=== PATIENT | female | born 1995 | race African-American/Black ===

== ENCOUNTER 2018-03-24 12:01 | Inpatient (IN) | payer OTHER ==
[2018-03-24] MEDS ORDERED: OXYTOCIN 10 UNIT/ML 1 ML VIAL IM PRN (13:22)
[2018-03-24] MEDS ORDERED: CARBOPROST TROMETHAMINE 250 MCG/ML 1 ML AMP IM PRN (13:22)
[2018-03-24] MEDS ORDERED: TERBUTALINE 1 MG/ML VIAL SQ PRN (13:22)
[2018-03-24] MEDS ORDERED: LIDOCAINE 1% (PF) 10 MG/ML (30 ML SDV) SQ PRN (13:22)
[2018-03-24] MEDS ORDERED: METHYLERGONOVINE 0.2 MG/ML 1 ML AMP IM PRN (13:22)
[2018-03-24 13:32] VITALS: BMI 35.2
[2018-03-24] MEDS: OXYTOCIN 20 UNITS/1000 ML NS 1,000 ML IV SCH ×2 (13:56→23:20)
[2018-03-24 13:57] LABS: Anisocytosis Slight; Basophils % (A) 0 %; Eosinophils # (A) 0.2 k/uL (0-0.7); Eosinophils % (A) 3 %; HCT 33.4 % (34.0-46.0); HGB 10.8 gm/dL (11.4-16.0); Lymphocytes # (A) 1.5 k/uL (1.0-4.8); Lymphocytes % (A) 17 %; MCH 27.4 pg (25.0-35.0); MCHC 32.3 g/dL (31.0-37.0); MCV 84.7 fL (80.0-100.0); Mean Platelet Volume 9.4; Monocytes # (A) 0.4 k/uL (0-1.0); Monocytes % (A) 5 %; Neutrophils # (A) 6.5 k/uL (1.3-7.7); Neutrophils % (A) 73 %; Platelet Count 128 k/uL (150-450); RBC 3.94 m/uL (3.80-5.40); RDW 17.3 % (11.5-15.5); WBC 8.9 k/uL (3.8-10.6)
[2018-03-24] MEDS: LACTATED RINGERS 1,000 ML IV SCH ×3 (13:57→21:28)
[2018-03-24] MEDS: LABETALOL 5 MG/ML VIAL MDV IVP SCH ×7 (14:37→20:54)
[2018-03-24] MEDS ORDERED: AMPICILLIN 2,000 MG in SODIUM CHLORIDE 0.9% 100 ML IVPB STA (15:02)
[2018-03-24] MEDS ORDERED: SODIUM CHLORIDE 0.9% 100 ML BAG ONE (18:48)
[2018-03-24] MEDS ORDERED: fentaNYL (PF) 50 MCG/ML 5 ML AMP ONE (18:48)
[2018-03-24] MEDS ORDERED: BUPIVACAINE (PF) 0.25% 30 ML VIAL ONE (18:48)
--- NOTE | 2018-03-24 19:48 | P.HPOB ---
History of Present Illness H&P Date: 03/24/18 Chief Complaint: IUP term: gestational hypertension Patient is a 22-year-old female at 37 weeks gestation who was seen in my office yesterday for her normal obstetrical visit. At that time she was noted have mild elevation of blood pressure in the 140/90 range and was supposed to go to labor and delivery for for full evaluation. However, she went to the lab had her labwork done but despite several phone calls from os did not responded did not come back in for her blood pressure checks and reevaluation. At that time all of her labs were normal. We did get a hold for earlier today and send her to labor and delivery where her blood pressures have remained elevated in fact she's had several blood pressures in the 170/100 range and has required labetalol for blood pressure management, with her labs yesterday all being normal we did not repeat her preeclamptic labs, however at this time it is noted that her platelets have dropped 129 and now is significant higher concern for potential preeclampsia that is developing. On physical exam her vital signs again or otherwise stable but but her blood pressure was elevated, heart regular, lungs clear, extremities without pain. It is noted that initially she voices no signs or symptoms of preeclampsia no headache, epigastric pain or visual changes. However in discussing with her this evening as she is gone through the labor process she is begun to have a significant headache and while she is not receive anything we'll plan to give her something to the IV but with her platelet count at 129 being a dramatic change from yesterday's well over 200 we'll plan to start magnesium sulfate and repeat her other preeclamptic labs. Past Medical History Past Medical History: No Reported History History of Any Multi-Drug Resistant Organisms: None Reported Past Surgical History: No Surgical Hx Reported Past Anesthesia/Blood Transfusion Reactions: No Reported Reaction Past Psychological History: No Psychological Hx Reported Smoking Status: Former smoker Past Alcohol Use History: None Reported Past Drug Use History: None Reported - Past Family History Mother Family Medical History: No Reported History Medications and Allergies Home Medications Medication Instructions Recorded Confirmed Type No Known Home Medications [No 03/24/18 03/24/18 History Known Home Medications] Allergies Allergy/AdvReac Type Severity Reaction Status Date / Time No Known Allergies Allergy Verified 03/24/18 12:16 Exam Osteopathic Statement: *. No significant issues noted on an osteopathic structural exam other than those noted in the History and Physical/Consult. - Vital Signs Vital signs: Vital Signs Temp Pulse Resp BP 03/24/18 13:23 97.5 F L 16 153/104 03/24/18 12:30 97.3 F L 83 16 142/91 Intake and Output 03/24/18 03/24/18 03/24/18 06:59 14:59 22:59 Other: # Voids 1 Weight 102.058 kg - OBG Physical Exam Breast: both: normal (no masses) Abdomen: bowel sounds normal, no diffuse tenderness, no bruit present, no guarding noted, no hepatomegaly, no splenomegaly, no mass Vulva: both: normal Vagina: normal moisture, no discharge Cervix: no lesion, no discharge Uterus: normal size, normal contour Adnexa: both: normal Anus/Rectum: normal perianal skin, no rectal mass, no hemorrhoids, heme negative Results Result Diagrams: 03/24/18 13:45 Abnormal Lab Results - Last 24 Hours (Table) 03/24/18 Range/Units 13:45 Hgb 10.8 L (11.4-16.0) gm/dL Hct 33.4 L (34.0-46.0) % RDW 17.3 H (11.5-15.5) % Plt Count 128 L (150-450) k/uL
[2018-03-24] MEDS ORDERED: MAGNESIUM SULFATE-WATER PMX 4 GM in WATER FOR INJECTION 1 50ML.BAG IVPB ONE (19:49)
[2018-03-24] MEDS: AMPICILLIN 1,000 MG in SODIUM CHLORIDE 0.9% 50 ML IVPB SCH (19:51)
[2018-03-24] MEDS: MAGNESIUM SULFATE-WATER PMX 20 GM in WATER FOR INJECTION 1 500ML.BAG IV SCH (20:10)
[2018-03-24] MEDS ORDERED: BUPIVACAINE (PF) 0.5% 12.5 ML, fentaNYL (PF) 200 MCG in SODIUM CHLORIDE 0.9% 83.5 ML EPIDURAL ONE (20:10)
[2018-03-24 20:21] LABS: ALT 26 U/L (9-52); AST 21 U/L (14-36); LDH 410 U/L (313-618)
[2018-03-24] MEDS ORDERED: ROPIVACAINE 100 MG, fentaNYL (PF) 200 MCG in SODIUM CHLORIDE 0.9% 76 ML EPIDURAL ONE (20:30)
[2018-03-24 22:35] LABS: Blood Urea Nitrogen 4 mg/dL (7-17); Magnesium 1.6 mg/dL (1.6-2.3); Uric Acid 5.4 mg/dL (3.7-7.4)
[2018-03-24] MEDS ORDERED: diphenhydrAMINE 50 MG/ML 1 ML VIAL IVP PRN ×2 (23:12)
[2018-03-24] MEDS ORDERED: MEASLES-MUMPS-RUBELLA VACC/PF 12,500 UNIT/0.5 ML VIAL SQ ONE (23:12)
[2018-03-24] MEDS ORDERED: WITCH HAZEL 1 EACH MED..PAD TOPICAL PRN (23:12)
[2018-03-24] MEDS ORDERED: ZOLPIDEM 5 MG TAB PO PRN (23:12)
[2018-03-24] MEDS ORDERED: HYDROcodone/APAP 5-325MG 1 EACH TAB PO PRN (23:12)
[2018-03-24] MEDS ORDERED: SIMETHICONE 80 MG CHEWABLE PO PRN (23:12)
[2018-03-24] MEDS ORDERED: diphenhydrAMINE 50 MG CAP PO PRN (23:12)
[2018-03-24] MEDS ORDERED: HYDROCORTISONE 2.5% RECTAL CREAM 30 GM TUBE RECTAL PRN (23:12)
[2018-03-24] MEDS ORDERED: BENZOCAINE/MENTHOL SPRAY 1 GM/SPRAY AEROSOL TOPICAL PRN (23:12)
[2018-03-24] MEDS ORDERED: diphenhydrAMINE 25 MG CAP PO PRN (23:12)
[2018-03-24] MEDS ORDERED: LANOLIN CREAM 5 GM TUBE TOPICAL PRN (23:12)
--- NOTE | 2018-03-24 23:17 | P.PROBDLV ---
Vaginal Delivery Note - . Vaginal Delivery Note: Patient progressed complete and pushing with spontaneous vaginal delivery of a viable male over an small second-degree laceration. Following delivery of the head head there was a compound hand noted. Baby was delivered from left occiput anterior position allowing the baby to try and deliver the superior hand was not happening well and due to concerns over baby's position of the arm in the vagina I did reach posteriorly and take the axilla of the inferior arm and rotate the baby in a counterclockwise fashion to allow the presenting hand to actually drop away from the face and easily affected delivery from this position. Once baby was fully delivered mouth nares were bulb suctioned and baby was placed on mother's abdomen where the umbilical cord was allowed to pulsate for 20 seconds prior to clamping and cutting. Once this occurred nursery personnel was present to assume care. Placenta was then delivered intact Pitocin was added to the IV. A second-degree midline laceration was repaired in interrupted fashion to reapproximate but essentially was just as a whole. There was also a separation between the labia majora side of the vagina and this following injection of anesthetic was repaired with 2 interrupted sutures to bring the tissues together so they've whole was not developed there. scores were 9 and 9 at one and 5 minutes respectively and the weight was 6 lbs. 14 oz. Both mother and baby are currently stable following delivery. We'll plan to maintain mag sulfate through the night and reevaluate in the morning. Blood pressures have been improved since her epidural and we' ll continue very close monitoring of this through the night and into tomorrow.
[2018-03-24] MEDS: IBUPROFEN 600 MG TAB PO PRN (23:48)
[2018-03-25] MEDS: AMPICILLIN 1,000 MG in SODIUM CHLORIDE 0.9% 50 ML IVPB SCH (00:57)
[2018-03-25] MEDS: ACETAMINOPHEN TAB 325 MG TAB PO PRN ×2 (01:51→20:04)
[2018-03-25] MEDS: ACETAMINOPHEN IV (For NPO) 1,000 MG in EMPTY BAG 1 BAG IVPB SCH ×3 (02:04→20:46)
[2018-03-25] MEDS: LACTATED RINGERS 1,000 ML IV SCH (06:34)
[2018-03-25 08:11] LABS: Anisocytosis Slight; Basophils % (A) 0 %; Eosinophils # (A) 0.1 k/uL (0-0.7); Eosinophils % (A) 1 %; HCT 30.3 % (34.0-46.0); HGB 9.7 gm/dL (11.4-16.0); Lymphocytes # (A) 1.6 k/uL (1.0-4.8); Lymphocytes % (A) 12 %; MCH 27.1 pg (25.0-35.0); MCHC 31.9 g/dL (31.0-37.0); MCV 84.8 fL (80.0-100.0); Monocytes # (A) 0.8 k/uL (0-1.0); Monocytes % (A) 6 %; Neutrophils # (A) 10.9 k/uL (1.3-7.7); Neutrophils % (A) 80 %; Platelet Count 207 k/uL (150-450); RBC 3.57 m/uL (3.80-5.40); RDW 17.4 % (11.5-15.5); WBC 13.5 k/uL (3.8-10.6)
[2018-03-25] MEDS: SENNOSIDES-DOCUSATE SODIUM 1 EACH TAB PO SCH ×2 (08:30→20:04)
[2018-03-25 08:31] LABS: INR 0.9 (<1.2); Partial Thromboplastin Time 21.2 sec (22.0-30.0); Prothrombin Time 9.4 sec (9.0-12.0)
--- NOTE | 2018-03-25 08:44 | P.MSEPDOC ---
Presenting Problems - Arrival Data Date of Arrival on Unit: 03/24/18 Time of Arrival on Unit: 13:00 Mode of Transport: Ambulatory - Complaint OB-Reason for Admission/Chief Complaint: Elevated Blood Pressure Medical History - Information : 1 Para: 0 Term: 0 : 0 Abortions: Spontaneous or Elective: 0 Number of Living Children: 0 - Gestational Age Gestational Age by PAT (wks/days): 37 Weeks and 2 Days Review of Systems - Review of Systems Constitutional: No problems Breast: No problems ENT: No problems Cardiovascular: No problems Respiratory: No problems Gastrointestinal: No problems Genitourinary: No problems Musculoskeletal: No problems Neurological: No problems Skin: No problems Vital Signs - Temperature Temperature: 98.2 F Temperature Source: Temporal Artery Scan - Pulse Right Brachial Pulse Rate: 85 Pulse Assessment Method: Automatic Cuff - Respirations Respiratory Rate: 18 Oxygen Delivery Method: Room Air O2 Sat by Pulse Oximetry: 99 - Blood Pressure Right Arm Blood Pressure: 141/81 Blood Pressure Mean: 101 Blood Pressure Source: Automatic Cuff Medical Screen Scoring (Pre) - Cervical Exam Dilation: Exam Deferred Effacement: Exam Deferred Membranes: Intact - Uterine Contractions Frequency: N/A Duration: N/A Intensity: N/A - Maternal Vital Signs Maternal Temperature: N/A Maternal Blood Pressure: Systolic >139 = 2 Signs of Preeclampsia: N/A Maternal Respirations: N/A - Pain Assessment Pain Scale Used: Numeric (1 - 10) Pain Intensity: 0 Pain Management Goal: 0 - Maternal Trauma Maternal Trauma: N/A - Assessment Baseline FHR: 145 Heart Rate - NICHD Category: Category I (Normal) = 0 NST: Reactive Position: N/A Station: N/A - Total Score Total Score (Pre): 2 - Level of Risk Level of Risk: Low (0-5) Physician Notification (Pre) - Physician Notified Physician Notified Date: 03/24/18 Physician Notified Time: 12:30 Physician/Practitioner Notifed:: Dr. Blank Spoke With: Dr. Blank New Order Received: Yes - Notification Comment Comment: admit for labor Disposition - Disposition OB Disposition: Admit I agree with the RN Medical Screening Exam: Yes Risk & Benefit of care provided described in d/c instruction: Yes Diagnosis: GESTATIONAL HTN W/O SIGNIFICANT PROTEINURIA, THIRD TRIMESTER
--- NOTE | 2018-03-25 08:54 | P.PNOBGVD ---
Subjective - Subjective Principal diagnosis: post day 1 Interval history: Overall patient is doing well. Blood pressures remained mildly elevated. Currently in the 140-150/80-90 range. She is completely asymptomatic otherwise. Her platelets did rebound and are now back over 200. Continue care Patient reports: Reports appetite normal, Reports voiding normally, Reports pain well controlled, Reports ambulating normally Max: doing well Objective - Latest Vital Signs Latest vital signs: Vital Signs Temp Pulse Resp BP Pulse Ox 03/25/18 08:44 98.2 F 85 18 141/81 99 03/25/18 04:00 98.2 F 85 18 141/81 99 03/25/18 01:33 98.2 F 87 16 147/87 03/25/18 01:03 99 16 146/102 99 03/25/18 00:33 83 16 142/95 03/25/18 00:18 77 16 136/94 03/25/18 00:03 80 16 146/92 03/24/18 23:48 83 16 155/97 03/24/18 23:33 81 16 148/96 03/24/18 13:23 97.5 F L 16 153/104 03/24/18 12:30 97.3 F L 83 16 142/91 Intake and Output 03/24/18 03/25/18 03/25/18 22:59 06:59 14:59 Intake Total 3250 3187.867 Output Total 2600 Balance 3250 587.867 Intake: IV 3000 Lactated Ringers 1,000 ml 2000 @ 125 mls/hr IV .Q8H [facility] Rx#:[id number] Oxytocin 20 Units/1000 ml 1000 Ns 1,000 ml @ 1 MILLIUNIT/MIN 3 mls/hr IV .Q24H [facility] Rx#:[id number] Intake, IV Titration 250 1269.867 Amount Ampicillin 1,000 mg In 100 Sodium Chloride 0.9% 50 ml @ 100 mls/hr IVPB Q4H [facility] Rx#:[id number] Ampicillin 2,000 mg In 100 Sodium Chloride 0.9% 100 ml @ 200 mls/hr IVPB ONCE STA Rx#:[id number] Lactated Ringers 1,000 ml 1000 @ 125 mls/hr IV .Q8H [facility] Rx#:[id number] Magnesium Sulfate-Water 241.667 Pmx 20 gm In Water For Injection 1 500ml.bag @ 2 GM/HR 50 mls/hr IV .Q10H [facility] Rx#:[id number] Magnesium Sulfate-Water 50 Pmx 4 gm In Water For Injection 1 50ml.bag @ 150 mls/hr IVPB ONCE ONE Rx#:[id number] Oxytocin 20 Units/1000 ml 28.2 Ns 1,000 ml @ 1 MILLIUNIT/MIN 3 mls/hr IV .Q24H [facility] Rx#:[id number] Oral 1918 Output: Urine 2600 Uretheral (Lantigua) 400 Other: # Bowel Movements 1 - Exam Lungs: bilateral: normal Chest: Normal S1, Normal S2 Extremities: Present: normal Abdomen: Present: normal appearance, soft Uterus: Present: normal, firm - Labs Labs: Abnormal Lab Results - Last 24 Hours (Table) 03/24/18 03/24/18 03/24/18 Range/Units 13:45 20:01 20:01 WBC (3.8-10.6) k/uL RBC (3.80-5.40) m/uL Hgb 10.8 L (11.4-16.0) gm/dL Hct 33.4 L (34.0-46.0) % RDW 17.3 H (11.5-15.5) % Plt Count 128 L (150-450) k/uL Neutrophils # (1.3-7.7) k/uL APTT (22.0-30.0) sec BUN 4 L (7-17) mg/dL Creatinine 0.51 L 0.50 L (0.52-1.04) mg/dL 03/25/18 03/25/18 Range/Units 07:20 07:20 WBC 13.5 H (3.8-10.6) k/uL RBC 3.57 L (3.80-5.40) m/uL Hgb 9.7 L (11.4-16.0) gm/dL Hct 30.3 L (34.0-46.0) % RDW 17.4 H (11.5-15.5) % Plt Count (150-450) k/uL Neutrophils # 10.9 H (1.3-7.7) k/uL APTT 21.2 L (22.0-30.0) sec BUN (7-17) mg/dL Creatinine (0.52-1.04) mg/dL
[2018-03-25] MEDS: MAGNESIUM SULFATE-WATER PMX 20 GM in WATER FOR INJECTION 1 500ML.BAG IV SCH ×2 (10:37→20:49)
[2018-03-25] MEDS: IBUPROFEN 600 MG TAB PO PRN ×2 (10:39→16:32)
[2018-03-25 19:24] VITALS: RESP 16
[2018-03-26] MEDS: IBUPROFEN 600 MG TAB PO PRN (02:35)
--- NOTE | 2018-03-26 06:22 | P.DS ---
Providers Date of admission: 03/24/18 12:29 Expected date of discharge: 03/26/18 Attending physician: Grzegorz Blank Primary care physician: Stated None Hospital Course: Patient is doing very well day 2. She is involuting, voiding, and she is tolerating her diet. She voices no complaints and is ready for discharge. Prescription for Motrin was provided. All the questions are answered for her at this time. Heart regular, lungs clear, extremities without pain. Abdomen is soft uterus is firm below the umbilicus. It is noted that her blood pressure maintain some small elevations in the 140/90-150/90 range. She is scheduled to return to see me on Tuesday for repeat blood pressure check. At this time I do not see the need for antihypertensive medication but that may change. Should she have any severe headaches epigastric pain visual changes other signs or symptoms of increasing blood pressure were preeclampsia she is also encouraged to report immediately to the emergency room. She is otherwise stable for discharge this time. Patient Condition at Discharge: Good Plan - Discharge Summary Discharge Rx Participant: Yes New Discharge Prescriptions: New Ibuprofen [Motrin] 600 mg PO Q6HR PRN #30 tab PRN Reason: Pain Discharge Medication List Ibuprofen [Motrin] 600 mg PO Q6HR PRN #30 tab 03/26/18 [Rx] Follow up Appointment(s)/Referral(s): Grzegorz Blank DO [Doctor of Osteopathic Medicine] - 3 Days Activity/Diet/Wound Care/Special Instructions: No heavy lifting, limit stairs and driving, and pelvic rest. If any high temperatures, heavy bleeding, or severe pain call my office Discharge Disposition: HOME SELF-CARE
[2018-03-26] MEDS: SENNOSIDES-DOCUSATE SODIUM 1 EACH TAB PO SCH (08:05)
[2018-03-26 08:13] VITALS: BP 147/90; PULSE 82; TEMP 98.2
[2018-03-27 12:52] LABS: HIV AB P24 Non-Reactive (Non-Reactive); HIV P24 AG Non-Reactive (Non-Reactive)
== END 2018-03-26 11:35 | disposition home or self-care (01) | DRG 775 ==
LOC: FBPOP 12:01 → 4FBP 12:29
PROVIDERS: ADMIT Obstetrics & Gynecology; ATTEND Obstetrics & Gynecology
PROC: 00HU33Z Insertion of Infusion Device into Spinal Canal, Percutaneous Approach (ICD-10-PCS; principal; 2018-03-24)
PROC: 0KQM0ZZ Repair Perineum Muscle, Open Approach (ICD-10-PCS; principal; 2018-03-24)
PROC: 3E033VJ Introduction of Other Hormone into Peripheral Vein, Percutaneous Approach (ICD-10-PCS; principal; 2018-03-24)
PROC: 10E0XZZ Delivery of Products of Conception, External Approach (ICD-10-PCS; principal; 2018-03-24)
PROC: 3E0R3NZ Introduction of Analgesics, Hypnotics, Sedatives into Spinal Canal, Percutaneous Approach (ICD-10-PCS; principal; 2018-03-24)
PROC: 10907ZC Drainage of Amniotic Fluid, Therapeutic from Products of Conception, Via Natural or Artificial Opening (ICD-10-PCS; principal; 2018-03-24)
DX: O13.4 Gestational [pregnancy-induced] hypertension without significant proteinuria, complicating childbirth (principal); Z37.0 Single live birth; O70.1 Second degree perineal laceration during delivery; Z3A.37 37 weeks gestation of pregnancy; Z87.891 Personal history of nicotine dependence; O32.2XX0 Maternal care for transverse and oblique lie, not applicable or unspecified
CPT/HCPCS: 59025; 82565; 83615; 83735; 84450; 84460; 84520; 84550; 85025; 85384; 85610; 85730; 86803; 87390; 99213

== ENCOUNTER 2019-09-06 01:50 | Emergency (ER) | payer OTHER ==
[2019-09-06 01:59] VITALS: RESP 18
[2019-09-06 02:43] LABS: Appearance,Urine Clear (Clear); Bilirubin,Urine Negative (Negative); Blood,Urine Negative (Negative); Color,Urine Yellow; Glucose,Urine (UA) Negative (Negative); Ketones,Urine Negative (Negative); Leukocyte Esterase,Urine Moderate (Negative); Mucus,Urine Rare /hpf; Nitrite,Urine Negative (Negative); Protein,Urine Negative (Negative); RBC,Urine 1 /hpf (0-5); Specific Gravity,Urine 1.017 (1.001-1.035); Squamous Epithelial Cell,Urine 2 /hpf (0-4); Urobilinogen,Urine <2.0 mg/dL (<2.0); WBC,Urine 2 /hpf (0-5)
[2019-09-06] MEDS ORDERED: PENICILLIN V POTASSIUM 250 MG TAB PO STA (02:54)
[2019-09-06] MEDS ORDERED: PENICILLIN VK 500MG STARTER 4 TAB BTL PO STA (02:54)
--- NOTE | 2019-09-06 03:17 | XR ---
EXAMINATION TYPE: XR KUB DATE OF EXAM: 09/06/2019 COMPARISON: NONE HISTORY: Abdominal pain TECHNIQUE: 2 views upright FINDINGS: There is no sign of intestinal obstruction or pneumoperitoneum. Fecal pattern is normal. Th ere are no pathologic calcifications. Bony structures are intact. IMPRESSION: Nonacute abdomen.
[2019-09-06 03:20] LABS: Basophils % (A) 1 %; Eosinophils # (A) 0.3 k/uL (0-0.7); Eosinophils % (A) 4 %; HCT 39.3 % (34.0-46.0); HGB 13.4 gm/dL (11.4-16.0); Lymphocytes # (A) 2.2 k/uL (1.0-4.8); Lymphocytes % (A) 29 %; MCH 29.5 pg (25.0-35.0); MCHC 34.1 g/dL (31.0-37.0); MCV 86.3 fL (80.0-100.0); Mean Platelet Volume 5.9; Monocytes # (A) 0.4 k/uL (0-1.0); Monocytes % (A) 5 %; Neutrophils # (A) 4.6 k/uL (1.3-7.7); Neutrophils % (A) 60 %; Platelet Count 255 k/uL (150-450); RBC 4.56 m/uL (3.80-5.40); RDW 13.7 % (11.5-15.5); WBC 7.6 k/uL (3.8-10.6)
[2019-09-06 03:38] LABS: ALT 35 U/L (9-52); AST 41 U/L (14-36); African American GFR (CKD) >90 (>60 ml/min/1.73 sqM); Albumin 4.5 g/dL (3.5-5.0); Alkaline Phosphatase 52 U/L (38-126); Anion Gap 7 mmol/L; Blood Urea Nitrogen 9 mg/dL (7-17); Calcium 9.4 mg/dL (8.4-10.2); Carbon Dioxide 25 mmol/L (22-30); Chloride 105 mmol/L (98-107); Glucose 90 mg/dL (74-99); Potassium 4.1 mmol/L (3.5-5.1); Sodium 137 mmol/L (137-145); Total Bilirubin 0.3 mg/dL (0.2-1.3); Total Protein 7.7 g/dL (6.3-8.2)
--- NOTE | 2019-09-06 03:49 | ED ---
General Adult HPI - General Chief complaint: Extremity Problem,Nontraumatic Stated complaint: Bilateral arm pain, dental pain Time Seen by Provider: 09/06/19 02:06 Source: patient, RN notes reviewed, old records reviewed Mode of arrival: ambulatory Limitations: no limitations - History of Present Illness Initial comments: 23-year-old female patient with no pertinent past history presents to do multiple complaints. Patient chief complaint is soreness to her upper extremities. 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 Denies any falls or injury. Patient secondary complaint is dental pain. Patient was to her right lower molar is causing her some discomfort, reports she is unaware as to have moved. Patient third complaint is a mild amount of soup. Abdominal pain. Patient reports has been ongoing for approximately week. Denies any other complaints. Systemic: Pt denies fatigue, fever/chills, rash. Pt denies weakness, night sweats, weight loss. Neuro: Pt denies headache, visual disturbances, syncope or pre-syncope. HEENT: Pt denies ocular discharge or irritation, otalgia, rhinorrhea, pharyngitis or notable lymphadenopathy. Cardiopulmonary: Pt denies chest pain, SOB, heart palpitations, dyspnea on exertion. Abdominal/GI: Pt denies n/v/d. : Pt denies dysuria, burning w/ urination, frequency/urgency. Denies new onset urinary or bowel incontinence. MSK: Pt denies myalgia, loss of strength or function in extremities. Neuro: Pt denies new onset weakness, paresthesias. - Related Data Previous Rx's Medication Instructions Recorded Ibuprofen [Motrin] 600 mg PO Q6HR PRN #30 tab 03/26/18 Penicillin V Potassium [Pen Vee K] 500 mg PO QID 7 Days #28 tablet 09/06/19 Allergies Allergy/AdvReac Type Severity Reaction Status Date / Time No Known Allergies Allergy Verified 03/24/18 12:16 Review of Systems ROS Statement: Those systems with pertinent positive or pertinent negative responses have been documented in the HPI. ROS Other: All systems not noted in ROS Statement are negative. Past Medical History Past Medical History: No Reported History History of Any Multi-Drug Resistant Organisms: None Reported Past Surgical History: No Surgical Hx Reported Past Anesthesia/Blood Transfusion Reactions: No Reported Reaction Past Psychological History: No Psychological Hx Reported Smoking Status: Former smoker Past Alcohol Use History: None Reported Past Drug Use History: None Reported - Past Family History Mother Family Medical History: No Reported History General Exam - General Exam Comments Initial Comments: Constitutional: NAD, AOX3, Pt has pleasant affect. HEENT: NC/AT, trachea midline, neck supple, no lymphadenopathy. Posterior phar ynx non erythematous, without exudates. External ears appear normal, without discharge. Mucous membranes moist. Eyes PERRLA, EOM intact. There is no scleral icterus. No pallor noted. Mildly erythematous right lower molar, no fluctuance, no abscess. Cardiopulmonary: RRR, no murmurs, rubs or gallops, no JVD noted. Lungs CTAB in anterior and posterior brooks. No peripheral edema. Abdominal exam: Abdomen soft and non-distended. Abdomen very mildly tender to palpation suprapubic region, no other areas of abdominal tenderness.. Bowel sounds active in LLQ. No hepatosplenomegaly. No ecchymosis Neuro: CN II-XII grossly intact. No nuchal rigidity. No raccon eyes, no ordonez sign, no hemotympanum. No cervical spinal tenderness. MSK: Upper extremities nontender to palpation, no skin changes, neurovascularly intact, cap refill less than 2 seconds, radial pulse +2. No posterior calf tenderness bilaterally, homans sign negative bilaterally. Posterior tibialis and radial pulse +2 bilaterally. Sensation intact in upper and lower extremities. Full active ROM in upper and lower extremities, 5/5 stregnth. Limitations: no limitations Course Vital Signs 09/06/19 01:54 Temperature 97.7 F Pulse Rate 79 Respiratory 18 Rate Blood Pressure 127/87 O2 Sat by Pulse 100 Oximetry Medical Decision Making - Medical Decision Making 23-year-old female patient does see for multiple complaints. Upper arm pain after starting manual labor job. Dental pain, abdominal pain. Patient vital signs are stable, afebrile. Physical exam displayed no pathologic findings with muscular skeletal exam. Dental exam revealed mild erythema around right lower molar region, no fluctuance or abscess. Abdomen revealed mild tender suprapubic region. No other areas of abdominal tenderness, no guarding or rigidity. Laboratory investigations were obtained, they are noncompressive. UA is negative, hCG is negative. KUB did not display acute process. Patient discharged with Penicillin VK for dental infection will follow up with primary care provider and will return to ER if condition worsens in any way. Case discussed with Dr. Espinoza. - Lab Data Result diagrams: 09/06/19 03:00 09/06/19 03:00 Lab Results 09/06/19 09/06/19 09/06/19 Range/Units 02:23 02:23 03:00 WBC 7.6 (3.8-10.6) k/uL RBC 4.56 (3.80-5.40) m/uL Hgb 13.4 (11.4-16.0) gm/dL Hct 39.3 (34.0-46.0) % MCV 86.3 (80.0-100.0) fL MCH 29.5 (25.0-35.0) pg MCHC 34.1 (31.0-37.0) g/dL RDW 13.7 (11.5-15.5) % Plt Count 255 (150-450) k/uL Neutrophils % 60 % Lymphocytes % 29 % Monocytes % 5 % Eosinophils % 4 % Basophils % 1 % Neutrophils # 4.6 (1.3-7.7) k/uL Lymphocytes # 2.2 (1.0-4.8) k/uL Monocytes # 0.4 (0-1.0) k/uL Eosinophils # 0.3 (0-0.7) k/uL Basophils # 0.0 (0-0.2) k/uL Sodium (137-145) mmol/L Potassium (3.5-5.1) mmol/L Chloride (98-107) mmol/L Carbon Dioxide (22-30) mmol/L Anion Gap mmol/L BUN (7-17) mg/dL Creatinine (0.52-1.04) mg/dL Est GFR (CKD-EPI)AfAm (>60 ml/min/1.73 sqM) Est GFR (CKD-EPI)NonAf (>60 ml/min/1.73 sqM) Glucose (74-99) mg/dL Plasma Lactic Acid Mitchel (0.7-2.0) mmol/L Calcium (8.4-10.2) mg/dL Total Bilirubin (0.2-1.3) mg/dL AST (14-36) U/L ALT (9-52) U/L Alkaline Phosphatase (38-126) U/L Total Protein (6.3-8.2) g/dL Albumin (3.5-5.0) g/dL Urine Color Yellow Urine Appearance Clear (Clear) Urine pH 6.0 (5.0-8.0) Ur Specific [place] 1.017 (1.001-1.035) Urine Protein Negative (Negative) Urine Glucose (UA) Negative (Negative) Urine Ketones Negative (Negative) Urine Blood Negative (Negative) Urine Nitrite Negative (Negative) Urine Bilirubin Negative (Negative) Urine Urobilinogen <2.0 (<2.0) mg/dL Ur Leukocyte Esterase Moderate H (Negative) Urine RBC 1 (0-5) /hpf Urine WBC 2 (0-5) /hpf Ur Squamous Epith Cells 2 (0-4) /hpf Urine Mucus Rare H (None) /hpf Urine HCG, Qual Not Detected (Not Detectd) 09/06/19 09/06/19 Range/Units 03:00 03:00 WBC (3.8-10.6) k/uL RBC (3.80-5.40) m/uL Hgb (11.4-16.0) gm/dL Hct (34.0-46.0) % MCV (80.0-100.0) fL MCH (25.0-35.0) pg MCHC (31.0-37.0) g/dL RDW (11.5-15.5) % Plt Count (150-450) k/uL Neutrophils % % Lymphocytes % % Monocytes % % Eosinophils % % Basophils % % Neutrophils # (1.3-7.7) k/uL Lymphocytes # (1.0-4.8) k/uL Monocytes # (0-1.0) k/uL Eosinophils # (0-0.7) k/uL Basophils # (0-0.2) k/uL Sodium 137 (137-145) mmol/L Potassium 4.1 (3.5-5.1) mmol/L Chloride 105 (98-107) mmol/L Carbon Dioxide 25 (22-30) mmol/L Anion Gap 7 mmol/L BUN 9 (7-17) mg/dL Creatinine 0.69 (0.52-1.04) mg/dL Est GFR (CKD-EPI)AfAm >90 (>60 ml/min/1.73 sqM) Est GFR (CKD-EPI)NonAf >90 (>60 ml/min/1.73 sqM) Glucose 90 (74-99) mg/dL Plasma Lactic Acid Mitchel 0.7 (0.7-2.0) mmol/L Calcium 9.4 (8.4-10.2) mg/dL Total Bilirubin 0.3 (0.2-1.3) mg/dL AST 41 H (14-36) U/L ALT 35 (9-52) U/L Alkaline Phosphatase 52 (38-126) U/L Total Protein 7.7 (6.3-8.2) g/dL Albumin 4.5 (3.5-5.0) g/dL Urine Color Urine Appearance (Clear) Urine pH (5.0-8.0) Ur Specific [place] (1.001-1.035) Urine Protein (Negative) Urine Glucose (UA) (Negative) Urine Ketones (Negative) Urine Blood (Negative) Urine Nitrite (Negative) Urine Bilirubin (Negative) Urine Urobilinogen (<2.0) mg/dL Ur Leukocyte Esterase (Negative) Urine RBC (0-5) /hpf Urine WBC (0-5) /hpf Ur Squamous Epith Cells (0-4) /hpf Urine Mucus (None) /hpf Urine HCG, Qual (Not Detectd) Disposition Clinical Impression: Pain, dental, Myalgia, Abdominal pain Disposition: HOME SELF-CARE Condition: Stable Instructions (If sedation given, give patient instructions): Abdominal Pain (ED), Musculoskeletal Pain (ED), Toothache (ED) Additional Instructions: Follow-up with primary care provider tomorrow. Take antibiotics as directed. Return to ER if condition worsens in any way. Prescriptions: Penicillin V Potassium [Pen Vee K] 500 mg PO QID 7 Days #28 tablet Is patient prescribed a controlled substance at d/c from ED?: No Referrals: None,Stated [Primary Care Provider] - 1-2 days
[2019-09-06 03:55] VITALS: BP 122/73; PULSE 75; TEMP 98
== END 2019-09-06 03:58 | disposition home or self-care (01) ==
LOC: EC 01:50
DX: M79.10 Myalgia, unspecified site (principal); R10.9 Unspecified abdominal pain; K04.7 Periapical abscess without sinus; L53.9 Erythematous condition, unspecified; Z87.891 Personal history of nicotine dependence
CPT/HCPCS: 36415; 74018; 80053; 81001; 81025; 83605; 85025; 99284

== ENCOUNTER 2020-03-26 15:58 | Emergency (ER) | payer OTHER ==
[2020-03-26 16:05] VITALS: BP 129/83; PULSE 109; RESP 18; TEMP 98
[2020-03-26] MEDS ORDERED: PENICILLIN VK 500MG STARTER 4 TAB BTL PO STA (16:21)
[2020-03-26] MEDS ORDERED: IBUPROFEN 600 MG STARTER PACK 4 TAB BTL PO STA (16:21)
[2020-03-26] MEDS ORDERED: MORPHINE SULFATE 4 MG/ML SYRINGE IM STA (16:21)
[2020-03-26] MEDS ORDERED: ACET/COD 300 MG/30 MG STARTER PACK 6 TAB BTL PO STA (16:21)
--- NOTE | 2020-03-26 16:23 | ED ---
General Adult HPI - General Source: patient Mode of arrival: ambulatory Limitations: no limitations <Daphne Hong - Last Filed: 03/26/20 18:05> <Belinda Josue - Last Filed: 03/31/20 04:11> - General Chief complaint: Dental/Oral Stated complaint: dental pain Time Seen by Provider: 03/26/20 16:09 - History of Present Illness Initial comments: 24-year-old female patient presents to the emergency department today for evaluation of left upper dental pain. Patient states that she has had the pain for the last 3 days. States today she noticed swelling at the roof of her mouth. States that the pain seems to be worsening. Denies any fever or chills. Denies any trismus or difficulty swallowing. States that prior to the coronavirus pandemic she did have tooth extraction scheduled, but her appointments have been delayed. States she is taking acetaminophen without relief. She denies nasuea, vomiting, abdominal discomfort. Denies any other concerns. (Daphne Hong) - Related Data Previous Rx's Medication Instructions Recorded Ibuprofen [Motrin] 600 mg PO Q6HR PRN #30 tab 03/26/18 Penicillin V Potassium [Pen Vee K] 500 mg PO QID 7 Days #28 tablet 09/06/19 Ibuprofen [Motrin] 600 mg PO Q8HR PRN #30 tab 03/26/20 Penicillin V Potassium [Pen Vee K] 500 mg PO Q6H #40 tablet 03/26/20 Acetaminophen Tab [Tylenol Tab] 500 mg PO Q6H PRN #30 tablet 03/30/20 Ibuprofen [Motrin] 600 mg PO Q8HR PRN #30 tab 03/30/20 Allergies Allergy/AdvReac Type Severity Reaction Status Date / Time No Known Allergies Allergy Verified 03/30/20 15:37 Review of Systems ROS Other: All systems not noted in ROS Statement are negative. <Daphne Hong - Last Filed: 03/26/20 18:05> ROS Other: All systems not noted in ROS Statement are negative. <Belinda Josue - Last Filed: 03/31/20 04:11> ROS Statement: Those systems with pertinent positive or pertinent negative responses have been documented in the HPI. Past Medical History Past Medical History: No Reported History History of Any Multi-Drug Resistant Organisms: None Reported Past Surgical History: No Surgical Hx Reported Past Anesthesia/Blood Transfusion Reactions: No Reported Reaction Past Psychological History: No Psychological Hx Reported Smoking Status: Current every day smoker Past Alcohol Use History: Occasional Past Drug Use History: None Reported - Past Family History Mother Family Medical History: No Reported History <Daphne Hong - Last Filed: 03/26/20 18:05> General Exam Limitations: no limitations General appearance: alert, in no apparent distress, other (This is a well- developed, well-nourished adult female patient in no acute distress. Vital signs upon presentation are temperature 98.2F, pulse 109, respirations 18, blood pressure 129/83, pulse ox 98% on room air.) Eye exam: Present: normal appearance, PERRL, EOMI. Absent: scleral icterus, conjunctival injection, periorbital swelling ENT exam: Present: normal oropharynx, mucous membranes moist, other (There is mild left sided facial swelling. There swelling noted over the left hard palate, no flucutuance. No drainage. ) Respiratory exam: Present: normal lung sounds bilaterally. Absent: respiratory distress, wheezes, rales, rhonchi, stridor Cardiovascular Exam: Present: regular rate, normal rhythm, normal heart sounds. Absent: systolic murmur, diastolic murmur, rubs, gallop, clicks Neurological exam: Present: alert, oriented X3, CN II-XII intact Psychiatric exam: Present: normal affect, normal mood Skin exam: Present: warm, dry, intact, normal color. Absent: rash <Daphne Hong M - Last Filed: 03/26/20 18:05> Course Vital Signs 03/26/20 16:03 Temperature 98.0 F Pulse Rate 109 H Respiratory 18 Rate Blood Pressure 129/83 O2 Sat by Pulse 98 Oximetry Medical Decision Making <Daphne Hong - Last Filed: 03/26/20 18:05> <Belinda Josue - Last Filed: 03/31/20 04:11> - Medical Decision Making 24-year-old female patient presents to the emergency department today for evaluation of left-sided upper dental pain. Physical examination did reveal swelling over the left hard palate, no fluctuance noted. No lymphadenopathy. She is afebrile, vital signs. We'll start Pen-Vee K and give pain medications. She is instructed to follow-up with dentistry as soon as possible. Return parameters were discussed in detail. She verbalizes understanding and agrees with this plan. (Daphne Hong) I was available for consultation in the emergency department. The history and physical exam were done by the midlevel provider. I was consulted for this patients care. I reviewed the case with the midlevel provider and based on their presentation of the patient, I agree with the assessment, medical decision making and plan of care as documented. Patient does not demonstrate any signs of ludwigs angina. Chart was dictated using [employer] dictation software. Attempts were made to correct any dictation errors however some typographical errors may persist. (Belinda Josue) Disposition Is patient prescribed a controlled substance at d/c from ED?: No Time of Disposition: 16:23 <Daphne Hong - Last Filed: 03/26/20 18:05> <Belinda Josue - Last Filed: 03/31/20 04:11> Clinical Impression: Dental abscess Disposition: HOME SELF-CARE Condition: Good Instructions (If sedation given, give patient instructions): Dental Abscess (ED) Additional Instructions: Complete antibiotic prescription in full. Take pain medication as needed. Follow up with dentistry as soon as possible. Return to the emergency department for any new, worsening, or concerning symptoms. Prescriptions: Ibuprofen [Motrin] 600 mg PO Q8HR PRN #30 tab PRN Reason: Pain Penicillin V Potassium [Pen Vee K] 500 mg PO Q6H #40 tablet Referrals: None,Stated [Primary Care Provider] - 1-2 days
== END 2020-03-26 17:01 | disposition home or self-care (01) ==
LOC: EC 15:58
DX: K04.7 Periapical abscess without sinus (principal); F17.200 Nicotine dependence, unspecified, uncomplicated
CPT/HCPCS: 99282 ×2; 96372 ×2; J2270

== ENCOUNTER 2020-03-26 23:38 | Emergency (ER) | payer OTHER ==
[2020-03-26 23:42] VITALS: BP 135/96; PULSE 94; RESP 18; TEMP 98.2
[2020-03-26] MEDS ORDERED: KETOROLAC 60 MG/2 ML VIAL IM STA (23:57)
--- NOTE | 2020-03-27 00:03 | ED ---
ENT HPI - General Chief complaint: Dental/Oral Stated complaint: Dental Pain, revisit Time Seen by Provider: 03/26/20 23:48 Source: patient Mode of arrival: ambulatory Limitations: no limitations - History of Present Illness Initial comments: Patient is a 24-year-old female presenting to the emergency Department with complaints of dental pain 2 days. Patient was in the ER today for same complaint. Patient states she's been having upper left-sided dental pain for 2 days. She states she knows she has to have dental work done but it was postponed secondary to the COVID outbreak. Patient states she was given pain meds, antibiotics however the pain started coming back a couple hours ago. Patient states she did try the Tylenol 3 that she was given without any relief. She denies any fever, chills. She states she did call her dentist and is awaiting an appointment. She denies any other complaints. - Related Data Previous Rx's Medication Instructions Recorded Ibuprofen [Motrin] 600 mg PO Q6HR PRN #30 tab 03/26/18 Penicillin V Potassium [Pen Vee K] 500 mg PO QID 7 Days #28 tablet 09/06/19 Ibuprofen [Motrin] 600 mg PO Q8HR PRN #30 tab 03/26/20 Penicillin V Potassium [Pen Vee K] 500 mg PO Q6H #40 tablet 03/26/20 Allergies Allergy/AdvReac Type Severity Reaction Status Date / Time No Known Allergies Allergy Verified 03/26/20 23:42 Review of Systems ROS Statement: Those systems with pertinent positive or pertinent negative responses have been documented in the HPI. ROS Other: All systems not noted in ROS Statement are negative. Past Medical History Past Medical History: No Reported History History of Any Multi-Drug Resistant Organisms: None Reported Past Surgical History: No Surgical Hx Reported Past Anesthesia/Blood Transfusion Reactions: No Reported Reaction Past Psychological History: No Psychological Hx Reported Smoking Status: Current every day smoker Past Alcohol Use History: Occasional Past Drug Use History: None Reported - Past Family History Mother Family Medical History: No Reported History General Exam - General Exam Comments Initial Comments: GENERAL: Well-appearing, well-nourished and in no acute distress. HEAD: Atraumatic, normocephalic. EYES: Pupils equal round and reactive to light, extraocular movements intact, sclera anicteric, conjunctiva are normal. ENT: TMs normal, nares patent, oropharynx clear without exudates. Moist mucous membranes. Patient has obvious dental caries, some erythema and mild swelling of the left sided upper hard palate. There is no obvious abscess to drain. NECK: Normal range of motion, supple without lymphadenopathy or JVD. LUNGS: Breath sounds clear to auscultation bilaterally and equal. No wheezes rales or rhonchi. HEART: Regular rate and rhythm without murmurs, rubs or gallops. ABDOMEN: Soft, nontender, normoactive bowel sounds. No guarding, no rebound. No masses appreciated. : Deferred EXTREMITIES: Normal range of motion, no pitting or edema. No clubbing or cyanosis. NEUROLOGICAL: Normal speech, normal gait. PSYCH: Normal mood, normal affect. SKIN: Warm, Dry, normal turgor, no rashes or lesions noted. Limitations: no limitations Course Vital Signs 03/26/20 23:39 Temperature 98.2 F Pulse Rate 94 Respiratory 18 Rate Blood Pressure 135/96 O2 Sat by Pulse 99 Oximetry Medical Decision Making - Medical Decision Making Patient is a 24-year-old female here for dental pain 2 days. Patient was in the ER today for same complaint. She received pain medication, antibiotics. Patient came back because her pain returned. Exam revealed no abscess to drain. I discussed with patient that I cannot give her more narcotics for this pain. Patient was given a Toradol injection the ER and will continue with already prescribed antibiotics. She will call her dentist first thing in the morning. She is in agreement with this plan of care. She is stable for discharge at this time. Case discussed with Dr. Josue. Disposition Clinical Impression: Dental abscess Disposition: HOME SELF-CARE Condition: Stable Instructions (If sedation given, give patient instructions): Dental Abscess (ED) Additional Instructions: Please return to the Emergency Department if symptoms worsen or any other concerns. Continue taking antibiotics as prescribed. May alternate between ibuprofen and Tylenol every 4 hours. Is patient prescribed a controlled substance at d/c from ED?: No Referrals: None,Stated [Primary Care Provider] - 1-2 days
== END 2020-03-27 00:17 | disposition home or self-care (01) ==
LOC: EC 23:38
DX: K04.7 Periapical abscess without sinus (principal); F17.200 Nicotine dependence, unspecified, uncomplicated
CPT/HCPCS: 99282; 96372; J1885

== ENCOUNTER 2020-03-27 20:39 | Emergency (ER) | payer OTHER ==
[2020-03-27] MEDS ORDERED: LIDOCAINE 1% INJ 10MG/ML (20 ML MDV) SQ ONE (20:53)
[2020-03-27] MEDS ORDERED: LIDOCAINE/EPINEPHR/TETRACAINE 5 ML BOTTLE TOPICAL ONE ×2 (20:53→20:54)
[2020-03-27] MEDS ORDERED: KETOROLAC 30 MG/ML 1 ML VIAL IVP STA (21:32)
[2020-03-27 21:39] LABS: Basophils # (A) 0.1 k/uL (0-0.2); Basophils % (A) 1 %; Eosinophils # (A) 0.3 k/uL (0-0.7); Eosinophils % (A) 3 %; HCT 42.6 % (34.0-46.0); HGB 13.7 gm/dL (11.4-16.0); Lymphocytes # (A) 2.6 k/uL (1.0-4.8); Lymphocytes % (A) 29 %; MCH 28.9 pg (25.0-35.0); MCHC 32.1 g/dL (31.0-37.0); Mean Platelet Volume 7.4; Monocytes # (A) 0.4 k/uL (0-1.0); Monocytes % (A) 4 %; Neutrophils # (A) 5.7 k/uL (1.3-7.7); Neutrophils % (A) 62 %; Platelet Count 277 k/uL (150-450); RBC 4.73 m/uL (3.80-5.40); RDW 13.1 % (11.5-15.5); WBC 9.2 k/uL (3.8-10.6)
[2020-03-27 21:47] LABS: African American GFR (CKD) >90 (>60 ml/min/1.73 sqM); Anion Gap 9 mmol/L; Blood Urea Nitrogen 10 mg/dL (7-17); Calcium 9.5 mg/dL (8.4-10.2); Carbon Dioxide 21 mmol/L (22-30); Chloride 106 mmol/L (98-107); Glucose 111 mg/dL (74-99); Non-African American GFR(CKD) >90 (>60 ml/min/1.73 sqM); Potassium 4.1 mmol/L (3.5-5.1); Sodium 136 mmol/L (137-145)
--- NOTE | 2020-03-27 22:24 | CT ---
EXAMINATION TYPE: CT soft tissue neck w con DATE OF EXAM: 03/27/2020 COMPARISON: None HISTORY: Right sided dental pain. CT DLP: 256 mGycm Automated exposure control for dose reduction was used. CONTRAST: Performed with IV Contrast, patient injected with 100 mL of Isovue 300. Images were obtained from the aortic arch to the top of the frontal sinuses with intravenous contrast . Orbital margins are intact. There is no evidence of retro-orbital mass. There is extensive mucosal th ickening in the left maxillary sinus. Frontal and ethmoid sinuses are fairly normal. The parotid glan ds are symmetric. Submandibular salivary glands are symmetric. Trachea appears normal. Epiglottis tyrese ears normal. There is mild hypertrophy of the adenoids that measures 13 mm. Tonsils are within normal limits. There is diffuse cervical lymph nodes that measure less than 1 cm. The mandibular ring is in tact. The maxilla is intact. I see no bony destructive process. There is cavity and lower posterior m olar on the right side. The lung apices are clear. There is no sign of a pneumothorax. There is normal branching pattern of t he great vessels on the aortic arch. There is no sign of mediastinal adenopathy. Cervical spine is in tact. Skull base is intact. IMPRESSION: Mild hypertrophy of the adenoids. Cavity in the lower right side molar which is probably clinically significant in this patient with ri ght sided dental pain. No abscess seen.
[2020-03-27] MEDS ORDERED: BUPIVACAINE (PF) 0.5% 30 ML VIAL SQ STA (22:41)
[2020-03-27] MEDS ORDERED: ACET/COD 300 MG/30 MG STARTER PACK 6 TAB BTL PO STA (23:00)
--- NOTE | 2020-03-27 23:00 | ED ---
General Adult HPI - General Chief complaint: Skin/Abscess/Foreign Body Stated complaint: Tooth Pain Time Seen by Provider: 03/27/20 20:49 Source: patient, EMS, RN notes reviewed, old records reviewed Mode of arrival: EMS Limitations: no limitations - History of Present Illness Initial comments: Patient is a 24 year old female with CC of dental pain on R lower molar, and arrives via EMS after 10mg of morphine. She has been to ED 2 times yesterday for complaints of pain to the left upper tooth. She reports there is pain for her to swallow and reports that she is scheduled to see dentist tomorrow. She has been taking PenVK, tylenol 3 starter packs, and motrin. She states she has not been able to sleep due to pain. . - Related Data Previous Rx's Medication Instructions Recorded Ibuprofen [Motrin] 600 mg PO Q6HR PRN #30 tab 03/26/18 Penicillin V Potassium [Pen Vee K] 500 mg PO QID 7 Days #28 tablet 09/06/19 Ibuprofen [Motrin] 600 mg PO Q8HR PRN #30 tab 03/26/20 Penicillin V Potassium [Pen Vee K] 500 mg PO Q6H #40 tablet 03/26/20 Allergies Allergy/AdvReac Type Severity Reaction Status Date / Time No Known Allergies Allergy Verified 03/26/20 23:42 Review of Systems ROS Statement: Those systems with pertinent positive or pertinent negative responses have been documented in the HPI. ROS Other: All systems not noted in ROS Statement are negative. Past Medical History Past Medical History: No Reported History History of Any Multi-Drug Resistant Organisms: None Reported Past Surgical History: No Surgical Hx Reported Past Anesthesia/Blood Transfusion Reactions: No Reported Reaction Past Psychological History: No Psychological Hx Reported Smoking Status: Current every day smoker Past Alcohol Use History: Occasional Past Drug Use History: None Reported - Past Family History Mother Family Medical History: No Reported History General Exam - General Exam Comments Initial Comments: 24 year old female, with complaint of pain. Moderate discomfort. Limitations: no limitations General appearance: alert, in no apparent distress Head exam: Present: atraumatic, normocephalic, normal inspection Eye exam: Present: normal appearance, PERRL, EOMI. Absent: scleral icterus, conjunctival injection, periorbital swelling ENT exam: Present: normal exam, mucous membranes moist, other (dental carries on R lower molar. No palpable abscess. Broken tooth noted. ) Neck exam: Present: normal inspection. Absent: tenderness, meningismus, lymphadenopathy Respiratory exam: Present: normal lung sounds bilaterally. Absent: respiratory distress, wheezes, rales, rhonchi, stridor Cardiovascular Exam: Present: regular rate, normal rhythm, normal heart sounds. Absent: systolic murmur, diastolic murmur, rubs, gallop, clicks GI/Abdominal exam: Present: soft, normal bowel sounds. Absent: distended, tenderness, guarding, rebound, rigid Extremities exam: Present: normal inspection, full ROM, normal capillary refill. Absent: tenderness, pedal edema, joint swelling, calf tenderness Back exam: Present: normal inspection Neurological exam: Present: alert, oriented X3, CN II-XII intact Psychiatric exam: Present: normal affect, normal mood Skin exam: Present: warm, dry, intact, normal color. Absent: rash Course Vital Signs 03/27/20 03/27/20 20:40 23:11 Temperature 98.3 F 98.4 F Pulse Rate 91 73 Respiratory 24 18 Rate Blood Pressure 141/122 139/79 O2 Sat by Pulse 100 98 Oximetry Procedures - Nerve Block Local Anesthetic Used: Marcaine 0.5% Amount of anesthesia used: 5 Side: right Intraoral Nerve Block: inferior alveolar Procedure Successful: Yes Patient Tolerated Procedure: well, no complications Medical Decision Making - Medical Decision Making Patient is a 24 year old female with 3rd visit for dental pain, today it is R lower molar, last 2 visits it was left upper. She has dental caries and broken R lower molar. She had a CT today showing dental caries, but no deep abscess or infection. CBC adn BMP are normal. PAtient given nerve block and toradol in ED and reports some improvement. Discussed dentist follow up. She does have some drug seeking behaviour. - Lab Data Result diagrams: 03/27/20 21:30 03/27/20 21:30 Lab Results 03/27/20 03/27/20 Range/Units 21:30 21:30 WBC 9.2 (3.8-10.6) k/uL RBC 4.73 (3.80-5.40) m/uL Hgb 13.7 (11.4-16.0) gm/dL Hct 42.6 (34.0-46.0) % MCV 90.0 (80.0-100.0) fL MCH 28.9 (25.0-35.0) pg MCHC 32.1 (31.0-37.0) g/dL RDW 13.1 (11.5-15.5) % Plt Count 277 (150-450) k/uL Neutrophils % 62 % Lymphocytes % 29 % Monocytes % 4 % Eosinophils % 3 % Basophils % 1 % Neutrophils # 5.7 (1.3-7.7) k/uL Lymphocytes # 2.6 (1.0-4.8) k/uL Monocytes # 0.4 (0-1.0) k/uL Eosinophils # 0.3 (0-0.7) k/uL Basophils # 0.1 (0-0.2) k/uL Sodium 136 L (137-145) mmol/L Potassium 4.1 (3.5-5.1) mmol/L Chloride 106 (98-107) mmol/L Carbon Dioxide 21 L (22-30) mmol/L Anion Gap 9 mmol/L BUN 10 (7-17) mg/dL Creatinine 0.71 (0.52-1.04) mg/dL Est GFR (CKD-EPI)AfAm >90 (>60 ml/min/1.73 sqM) Est GFR (CKD-EPI)NonAf >90 (>60 ml/min/1.73 sqM) Glucose 111 H (74-99) mg/dL Calcium 9.5 (8.4-10.2) mg/dL - Radiology Data Radiology results: report reviewed Hypertrophy of adenoids. Cavity in lower right side molar for patient with right sided dental pain. No abscess seen. Disposition Clinical Impression: Pain, dental Disposition: HOME SELF-CARE Condition: Good Instructions (If sedation given, give patient instructions): Toothache (ED) Additional Instructions: Patient advised to see the dentist. Follow-up with PCP. Take antibiotics. Is patient prescribed a controlled substance at d/c from ED?: No Referrals: None,Stated [Primary Care Provider] - 1-2 days Time of Disposition: 22:59
[2020-03-27 23:14] VITALS: BP 139/79; PULSE 73; RESP 18; TEMP 98.4
== END 2020-03-27 23:13 | disposition home or self-care (01) ==
LOC: EC 20:39
DX: K08.89 Other specified disorders of teeth and supporting structures (principal); K02.9 Dental caries, unspecified; F17.200 Nicotine dependence, unspecified, uncomplicated
CPT/HCPCS: 36415; 80048; 85025; 70491; 99284; 64400; 96374; J2001; J1885; Q9967

== ENCOUNTER 2020-03-30 15:30 | Emergency (ER) | payer OTHER ==
[2020-03-30 15:38] VITALS: BP 112/71; PULSE 75; RESP 16; TEMP 98.3
[2020-03-30] MEDS ORDERED: LIDOCAINE 1%-EPI 1:100,000 20 ML VIAL SQ STA (15:49)
[2020-03-30] MEDS ORDERED: ACET/COD 300 MG/30 MG STARTER PACK 6 TAB BTL PO STA (15:57)
--- NOTE | 2020-03-30 16:00 | ED ---
ENT HPI - General Chief complaint: Dental/Oral Stated complaint: Medication Refill Time Seen by Provider: 03/30/20 15:44 Source: patient Mode of arrival: ambulatory Limitations: no limitations - History of Present Illness Initial comments: Patient is a 24-year-old female presenting to emergency Department with a chief complaint abdominal pain. Patient reports she has been emergency department multiple times for the dental pain. Patient states she has an appointment to see a dentist recently but they would not evaluate her because she has Medicaid. States she attempted to contact the [facility] but it is closed due to the coronavirus. Patient reports she has been taking ibuprofen at home with no significant improvement in symptoms. She denies any facial swelling night sweats fevers or chills. - Related Data Previous Rx's Medication Instructions Recorded Ibuprofen [Motrin] 600 mg PO Q6HR PRN #30 tab 03/26/18 Penicillin V Potassium [Pen Vee K] 500 mg PO QID 7 Days #28 tablet 09/06/19 Ibuprofen [Motrin] 600 mg PO Q8HR PRN #30 tab 03/26/20 Penicillin V Potassium [Pen Vee K] 500 mg PO Q6H #40 tablet 03/26/20 Acetaminophen Tab [Tylenol Tab] 500 mg PO Q6H PRN #30 tablet 03/30/20 Ibuprofen [Motrin] 600 mg PO Q8HR PRN #30 tab 03/30/20 Allergies Allergy/AdvReac Type Severity Reaction Status Date / Time No Known Allergies Allergy Verified 03/30/20 15:37 Review of Systems ROS Statement: Those systems with pertinent positive or pertinent negative responses have been documented in the HPI. ROS Other: All systems not noted in ROS Statement are negative. Past Medical History Past Medical History: Hypertension History of Any Multi-Drug Resistant Organisms: None Reported Past Surgical History: No Surgical Hx Reported Past Anesthesia/Blood Transfusion Reactions: No Reported Reaction Past Psychological History: No Psychological Hx Reported Smoking Status: Current every day smoker Past Alcohol Use History: None Reported Past Drug Use History: None Reported - Past Family History Mother Family Medical History: No Reported History General Exam Limitations: no limitations General appearance: alert, in no apparent distress Head exam: Present: atraumatic, normocephalic, normal inspection Eye exam: Present: normal appearance, PERRL, EOMI Pupils: Present: normal accommodation ENT exam: Present: normal exam, mucous membranes moist, other (No signs of Tacos's angina.). Absent: normal oropharynx (Dental carry noted on tooth #31. No signs of abscess. No gingival irritation noted.) Neck exam: Present: normal inspection, full ROM Respiratory exam: Present: normal lung sounds bilaterally Cardiovascular Exam: Present: regular rate, normal rhythm, normal heart sounds Extremities exam: Present: normal inspection, full ROM Back exam: Present: normal inspection, full ROM Neurological exam: Present: alert, oriented X3 Psychiatric exam: Present: normal affect, normal mood Skin exam: Present: warm, dry, intact, normal color Course Vital Signs 03/30/20 15:34 Temperature 98.3 F Pulse Rate 75 Respiratory 16 Rate Blood Pressure 112/71 O2 Sat by Pulse 98 Oximetry Procedures - Nerve Block Consent Obtained: verbal consent Local Anesthetic Used: LIDOCAINE 1% with EPI Amount of anesthesia used: 1 Side: right Intraoral Nerve Block: inferior alveolar Procedure Successful: Yes Complications: none Patient Tolerated Procedure: well, no complications Medical Decision Making - Medical Decision Making Patient is 24-year-old female presenting to emergency prompt the chief complaint abdominal pain. On exam patient has no signs of periapical abscess but she does have a dental carry on tooth #31. Right inferior alveolar block was administered. Patient tolerated procedure well. Patient to be discharged with a Tylenol 3 starter pack. Also give the patient prescription of Tylenol and ibuprofen. Advised to follow-up with a dentist. Advised to continue taking the and a bad experience Return parameters thoroughly discussed the patient is understanding agreeable. Case discussed with physician. Disposition Clinical Impression: Pain, dental, Dental caries Disposition: HOME SELF-CARE Condition: Stable Instructions (If sedation given, give patient instructions): Toothache (ED) Additional Instructions: Follow up with a dentist. Take prescribed medication as directed. Return to emergency department if symptoms worsen. Prescriptions: Ibuprofen [Motrin] 600 mg PO Q8HR PRN #30 tab PRN Reason: Pain Acetaminophen Tab [Tylenol Tab] 500 mg PO Q6H PRN #30 tablet PRN Reason: Pain Is patient prescribed a controlled substance at d/c from ED?: No Referrals: None,Stated [Primary Care Provider] - 1-2 days Time of Disposition: 16:23
== END 2020-03-30 16:34 | disposition home or self-care (01) ==
LOC: EC 15:30
DX: K02.9 Dental caries, unspecified (principal); R10.9 Unspecified abdominal pain; F17.200 Nicotine dependence, unspecified, uncomplicated; Z76.0 Encounter for issue of repeat prescription
CPT/HCPCS: 64450; 99282

== ENCOUNTER 2022-09-22 00:44 | Emergency (ER) | payer OTHER ==
[2022-09-22 00:48] VITALS: TEMP 97.7
[2022-09-22] MEDS ORDERED: PIPERACILLIN-TAZOBACTAM 3.375 GM in SODIUM CHLORIDE 0.9% 100 ML IVPB STA (02:29)
[2022-09-22] MEDS ORDERED: ONDANSETRON 4 MG/2 ML VIAL IVP STA (02:29)
[2022-09-22] MEDS ORDERED: HYDROmorphone 1 MG/ML 1 ML SYRINGE IVP STA ×2 (02:29→04:27)
[2022-09-22] MEDS ORDERED: SODIUM CHLORIDE 0.9% 1,000 ML IV STA (02:29)
--- NOTE | 2022-09-22 02:33 | ED ---
Skin/Abscess/FB HPI - General Chief complaint: Skin/Abscess/Foreign Body Stated complaint: Abscess Time Seen by Provider: 09/22/22 02:14 Source: patient, RN notes reviewed Mode of arrival: wheelchair - History of Present Illness Initial comments: This is a pleasant 26-year-old female presents to emergency department with an abscess on her right buttocks which is developed over the past few days. Patient now describing intense pain in the area. Pain is exacerbated by palpati on and pressure. No alleviating factors. Patient denying any known fever or chills. No headache, no fever or chills, no changes in vision or hearing, no sore throat or difficulty with speech, no neck pain, no chest pain or shortness of breath, no abdominal pain, no nausea or vomiting, no changes in urination or bowel movements, no numbness or tingling, no extremity pain, no skin rashes or lesio ns. Past medical, surgical, social, and family history reviewed. - Related Data Previous Rx's Medication Instructions Recorded Ibuprofen [Motrin] 600 mg PO Q6HR PRN #30 tab 03/26/18 Penicillin V Potassium [Pen Vee K] 500 mg PO QID 7 Days #28 tablet 09/06/19 Ibuprofen [Motrin] 600 mg PO Q8HR PRN #30 tab 03/26/20 Penicillin V Potassium [Pen Vee K] 500 mg PO Q6H #40 tablet 03/26/20 Acetaminophen Tab [Tylenol Tab] 500 mg PO Q6H PRN #30 tablet 03/30/20 Ibuprofen [Motrin] 600 mg PO Q8HR PRN #30 tab 03/30/20 Clindamycin [Cleocin] 300 mg PO Q6H #40 capsule 09/22/22 HYDROcodone/APAP 5-325MG [[place] 5] 1 each PO Q4HR PRN #20 tab 09/22/22 Ibuprofen [Motrin] 600 mg PO Q8HR PRN #30 tab 09/22/22 Allergies Allergy/AdvReac Type Severity Reaction Status Date / Time No Known Allergies Allergy Verified 09/22/22 00:48 Review of Systems ROS Statement: Those systems with pertinent positive or pertinent negative responses have been documented in the HPI. ROS Other: All systems not noted in ROS Statement are negative. Past Medical History Past Medical History: Hypertension History of Any Multi-Drug Resistant Organisms: None Reported Past Surgical History: No Surgical Hx Reported Past Anesthesia/Blood Transfusion Reactions: No Reported Reaction Past Psychological History: No Psychological Hx Reported Past Alcohol Use History: None Reported Past Drug Use History: None Reported - Past Family History Mother Family Medical History: No Reported History General Exam General appearance: in distress Head exam: Present: atraumatic, normocephalic, normal inspection Eye exam: Present: normal appearance, PERRL, EOMI. Absent: scleral icterus, conjunctival injection, periorbital swelling ENT exam: Present: normal exam, mucous membranes moist Neck exam: Present: normal inspection. Absent: tenderness, meningismus, lymphadenopathy Respiratory exam: Present: normal lung sounds bilaterally. Absent: respiratory distress, wheezes, rales, rhonchi, stridor Cardiovascular Exam: Present: regular rate, normal rhythm, normal heart sounds. Absent: systolic murmur, diastolic murmur, rubs, gallop, clicks GI/Abdominal exam: Present: soft, normal bowel sounds. Absent: distended, ten derness, guarding, rebound, rigid Rectal exam: Present: tenderness, other (Patient has what appears to be a 4 or 5 cm abscess in the right buttock area, medial, very near the anal verge and perineum.) Extremities exam: Present: normal inspection, full ROM, normal capillary refill. Absent: tenderness, pedal edema, joint swelling, calf tenderness Back exam: Present: normal inspection Neurological exam: Present: alert, oriented X3, CN II-XII intact Psychiatric exam: Present: normal affect, normal mood Skin exam: Present: warm, dry, intact, normal color. Absent: rash Course Vital Signs 09/22/22 00:46 Temperature 97.7 F Pulse Rate 104 H Respiratory 15 Rate Blood Pressure 134/76 O2 Sat by Pulse 95 Oximetry Procedures - Incision & Drainage Consent Obtained: verbal consent Indication: Right perirectal abscess Site: buttock (Right buttock) Size (cm): 4 Anesthetic Used: lidocaine 1% (1-1 ratio with 0.5% Marcaine/epinephrine) Amount (mLs): 5 I&D Cleaning Method: Betadine Sterile Field Used?: Yes Scalpel Used: #11 I&D Drainage Obtained: Pus, Blood Packing: Iodoform Culture Obtained?: Yes Complications: pain Patient Tolerated Procedure: well Medical Decision Making - Medical Decision Making Patient will require pain medication. Abscess is very near the perineum and anus. We will order a CT of the pelvis to delineate further Both aerobic and anaerobic wound culture sent. Patient will be placed on clindamycin 300 mg 4 times a day. Patient given a short course of [place]. Educated to leave the packing material on for 3 days. Patient voiced understanding of the treatment plan. Patient was given follow-up instructions for surgery as well. Of course she can return at any time if any problems worsen or any other situations arise. No to come back here if she cannot get in with the surgeon. Patient was told to return to the ER for any signs or symptoms worsen. Told to return immediately if any other problems arise. All questions answered. Treatment plan discussed. Patient in agreement Every effort has been made to ensure accuracy of this dictation. However, due to the limitations of electronic medical records and dictation devices, errors in charting still occur. The case was discussed in detail with ED attending physician. Presentation, findings, treatment plan discussed in detail. [facility] D[facility] Dr. Josue - Lab Data Result diagrams: 09/22/22 02:59 09/22/22 02:59 Lab Results 09/22/22 09/22/22 09/22/22 Range/Units 02:59 02:59 02:59 WBC 12.8 H (3.8-10.6) k/uL RBC 5.31 (3.80-5.40) m/uL Hgb 15.8 (11.4-16.0) gm/dL Hct 47.6 H (34.0-46.0) % MCV 89.7 (80.0-100.0) fL MCH 29.7 (25.0-35.0) pg MCHC 33.1 (31.0-37.0) g/dL RDW 13.9 (11.5-15.5) % Plt Count 220 (150-450) k/uL MPV 8.1 Neutrophils % 72 % Lymphocytes % 19 % Monocytes % 5 % Eosinophils % 2 % Basophils % 1 % Neutrophils # 9.2 H (1.3-7.7) k/uL Lymphocytes # 2.4 (1.0-4.8) k/uL Monocytes # 0.6 (0-1.0) k/uL Eosinophils # 0.3 (0-0.7) k/uL Basophils # 0.1 (0-0.2) k/uL Sodium 137 (137-145) mmol/L Potassium 4.0 (3.5-5.1) mmol/L Chloride 106 (98-107) mmol/L Carbon Dioxide 22 (22-30) mmol/L Anion Gap 9 mmol/L BUN 7 (7-17) mg/dL Creatinine 0.60 (0.52-1.04) mg/dL Est GFR (CKD-EPI)AfAm >90 (>60 ml/min/1.73 sqM) Est GFR (CKD-EPI)NonAf >90 (>60 ml/min/1.73 sqM) Glucose 84 (74-99) mg/dL Plasma Lactic Acid Mitchel 1.0 (0.7-2.0) mmol/L Calcium 9.6 (8.4-10.2) mg/dL Total Bilirubin 1.2 (0.2-1.3) mg/dL AST 28 (14-36) U/L ALT 20 (4-34) U/L Alkaline Phosphatase 97 (38-126) U/L C-Reactive Protein 3.7 H (<1.0) mg/dL Total Protein 7.9 (6.3-8.2) g/dL Albumin 4.7 (3.5-5.0) g/dL HCG, Qual Not Detected - Radiology Data Radiology results: report reviewed, image reviewed My interpretation of the computed tomography scan of the pelvis with IV contrast reveals a abscess-like mass in the right perirectal area. No definitive communication with the rectal or vaginal wall. I did review the radiographic interpretation. Disposition Clinical Impression: Abscess, perirectal Disposition: HOME SELF-CARE Condition: Good Instructions (If sedation given, give patient instructions): Abscess Incision and Drainage (ED) Additional Instructions: Take antibiotics as directed. Do not drive or operate vehicles or operate machinery while taking the pain medication. We've the packing material in place for 3 days then return for pack removal. Return any time if any other problems arise. Call at 8 AM to set up a follow-up appointment with the general surgeon as discussed. Prescriptions: Clindamycin [Cleocin] 300 mg PO Q6H #40 capsule Ibuprofen [Motrin] 600 mg PO Q8HR PRN #30 tab PRN Reason: Pain HYDROcodone/APAP 5-325MG [[place] 5] 1 each PO Q4HR PRN #20 tab PRN Reason: Pain Is patient prescribed a controlled substance at d/c from ED?: Yes When asked, does pt state using other controlled substances?: No If prescribed controlled substance>3 days was MAPS reviewed?: Prescribed <3 Days If opioid is for acute pain is fill amount 7 days or less?: Yes If Rx opioid, was Start Talking consent form obtained?: Yes Referrals: Rossi Martinez DO [Doctor of Osteopathic Medicine] - 09/24/22 Time of Disposition: 04:50
[2022-09-22] MEDS ORDERED: BUPIVACAIN-EPI 0.5%-1:200,000 30 ML VIAL SQ STA (03:03)
[2022-09-22] MEDS ORDERED: LIDOCAINE 1% INJ 10MG/ML (30 ML VIAL-PF) SQ ONE (03:03)
[2022-09-22 03:09] LABS: Basophils # (A) 0.1 k/uL (0-0.2); Basophils % (A) 1 %; Eosinophils # (A) 0.3 k/uL (0-0.7); Eosinophils % (A) 2 %; HCT 47.6 % (34.0-46.0); HGB 15.8 gm/dL (11.4-16.0); Lymphocytes # (A) 2.4 k/uL (1.0-4.8); Lymphocytes % (A) 19 %; MCH 29.7 pg (25.0-35.0); MCHC 33.1 g/dL (31.0-37.0); MCV 89.7 fL (80.0-100.0); Mean Platelet Volume 8.1; Monocytes # (A) 0.6 k/uL (0-1.0); Monocytes % (A) 5 %; Neutrophils # (A) 9.2 k/uL (1.3-7.7); Neutrophils % (A) 72 %; Platelet Count 220 k/uL (150-450); RBC 5.31 m/uL (3.80-5.40); RDW 13.9 % (11.5-15.5); WBC 12.8 k/uL (3.8-10.6)
[2022-09-22 03:30] LABS: ALT 20 U/L (4-34); AST 28 U/L (14-36); African American GFR (CKD) >90 (>60 ml/min/1.73 sqM); Albumin 4.7 g/dL (3.5-5.0); Alkaline Phosphatase 97 U/L (38-126); Anion Gap 9 mmol/L; Blood Urea Nitrogen 7 mg/dL (7-17); C Reactive Protein 3.7 mg/dL (<1.0); Calcium 9.6 mg/dL (8.4-10.2); Carbon Dioxide 22 mmol/L (22-30); Chloride 106 mmol/L (98-107); Glucose 84 mg/dL (74-99); Non-African American GFR(CKD) >90 (>60 ml/min/1.73 sqM); Sodium 137 mmol/L (137-145); Total Bilirubin 1.2 mg/dL (0.2-1.3); Total Protein 7.9 g/dL (6.3-8.2)
[2022-09-22] MEDS ORDERED: BUPIVACAINE (PF) 0.5% 30 ML VIAL SQ STA (03:34)
[2022-09-22 03:54] LABS: HCG,Qualitative Serum Not Detected
--- NOTE | 2022-09-22 04:15 | CT ---
EXAMINATION TYPE: CT pelvis w con DATE OF EXAM: 09/22/2022 COMPARISON: None HISTORY: PERIRECTAL ABSCESS CT DLP: 622 mGycm Automated exposure control for dose reduction was used. CONTRAST: Performed with IV Contrast, patient injected with 100 mL of Isovue 300. Images obtained from the iliac crests to the proximal femurs with the IV contrast. There is no free fluid in the pelvis. Bladder distends smoothly. Uterus is anteverted. Delayed images show normal contrast opacification of the urinary bladder. No evidence of a bowel obstruction. There is some subcutaneous fluid collection in the medial right buttock posterior to the anus. This m easures 3.7 x 2.2 cm. There is minimal adjacent fat stranding. The bony pelvis is intact. The hip joints are intact. Acetabula appear normal. IMPRESSION: Posterior right-sided perianal fluid collection consistent with an abscess.
[2022-09-22 05:10] VITALS: BP 122/80; PULSE 80; RESP 16
== END 2022-09-22 05:20 | disposition home or self-care (01) ==
LOC: EC 00:44
DX: K61.1 Rectal abscess (principal); I10 Essential (primary) hypertension
CPT/HCPCS: 99285; 10060; 96365; 96375; 96376; 36415; 80053; 83605; 85025; 86140; 84703; 87040; 87070; 87205; 87075; 72193; J2543; J2405; J2001; J1170; Q9967

== ENCOUNTER 2022-09-25 06:21 | Emergency (ER) | payer OTHER ==
[2022-09-25 06:26] VITALS: BP 150/109; PULSE 89; RESP 18; TEMP 98.5
--- NOTE | 2022-09-25 06:50 | ED ---
General Adult HPI - General Chief complaint: Skin/Abscess/Foreign Body Stated complaint: Recheck abscess Time Seen by Provider: 09/25/22 06:28 Source: patient Mode of arrival: ambulatory Limitations: no limitations - History of Present Illness Initial comments: 26 year old female coming into the ED for packing removal. Pt states the packing was placed on 09/22/2022 and she was encouraged to return here today for removal. She denies active drainage, bleeding, fevers, chills. She believes it is healing well. She has been taking ABX as prescribed. - Related Data Previous Rx's Medication Instructions Recorded Ibuprofen [Motrin] 600 mg PO Q6HR PRN #30 tab 03/26/18 Penicillin V Potassium [Pen Vee K] 500 mg PO QID 7 Days #28 tablet 09/06/19 Ibuprofen [Motrin] 600 mg PO Q8HR PRN #30 tab 03/26/20 Penicillin V Potassium [Pen Vee K] 500 mg PO Q6H #40 tablet 03/26/20 Acetaminophen Tab [Tylenol Tab] 500 mg PO Q6H PRN #30 tablet 03/30/20 Ibuprofen [Motrin] 600 mg PO Q8HR PRN #30 tab 03/30/20 Clindamycin [Cleocin] 300 mg PO Q6H #40 capsule 09/22/22 HYDROcodone/APAP 5-325MG [[place] 5] 1 each PO Q4HR PRN #20 tab 09/22/22 Ibuprofen [Motrin] 600 mg PO Q8HR PRN #20 tab 09/22/22 Ibuprofen [Motrin] 600 mg PO Q8HR PRN #30 tab 09/22/22 clindamycin HCL 300 mg PO QID #40 cap 09/22/22 Allergies Allergy/AdvReac Type Severity Reaction Status Date / Time No Known Allergies Allergy Verified 09/25/22 06:26 Review of Systems ROS Statement: Those systems with pertinent positive or pertinent negative responses have been documented in the HPI. ROS Other: All systems not noted in ROS Statement are negative. Past Medical History Past Medical History: Hypertension History of Any Multi-Drug Resistant Organisms: None Reported Past Surgical History: No Surgical Hx Reported Past Anesthesia/Blood Transfusion Reactions: No Reported Reaction Past Psychological History: No Psychological Hx Reported Smoking Status: Current every day smoker Past Alcohol Use History: None Reported Past Drug Use History: None Reported - Past Family History Mother Family Medical History: No Reported History General Exam Limitations: no limitations General appearance: alert, in no apparent distress Head exam: Present: atraumatic, normocephalic, normal inspection Eye exam: Present: normal appearance, PERRL, EOMI. Absent: scleral icterus, conjunctival injection, periorbital swelling ENT exam: Present: normal exam, mucous membranes moist Respiratory exam: Present: normal lung sounds bilaterally. Absent: respiratory distress, wheezes, rales, rhonchi, stridor Cardiovascular Exam: Present: regular rate, normal rhythm, normal heart sounds. Absent: systolic murmur, diastolic murmur, rubs, gallop, clicks GI/Abdominal exam: Present: soft, normal bowel sounds. Absent: distended, tenderness, guarding, rebound, rigid Skin exam: Present: warm (1cm open abscess to the R gluteal fold that appears to be healing well. No surrounding erythema, edema, no active drainage. No fluctuance. ), dry, intact, normal color. Absent: rash Course Vital Signs 09/25/22 06:23 Temperature 98.5 F Pulse Rate 89 Respiratory 18 Rate Blood Pressure 150/109 O2 Sat by Pulse 97 Oximetry Medical Decision Making - Medical Decision Making 26-year-old -[place] female coming in for packing removal. Patient had the packing removed and tolerated well, no complications. Wound left open on 09/25/2022. All questions and concerns addressed. Case discussed with Dr. Love . - Differential Diagnosis Abscess Disposition Clinical Impression: Abscess Disposition: HOME SELF-CARE Condition: Stable Instructions (If sedation given, give patient instructions): Abscess (ED) Additional Instructions: Return to ED if symptoms worsen or persist. Is patient prescribed a controlled substance at d/c from ED?: No Referrals: None,Stated [Primary Care Provider] - 1-2 days Time of Disposition: 06:51
== END 2022-09-25 06:57 | disposition home or self-care (01) ==
LOC: EC 06:21
DX: L02.31 Cutaneous abscess of buttock (principal); I10 Essential (primary) hypertension; F17.200 Nicotine dependence, unspecified, uncomplicated; Z48.01 Encounter for change or removal of surgical wound dressing
CPT/HCPCS: 99282

== ENCOUNTER 2024-03-02 22:21 | Emergency (ER) | payer BC, OTHER ==
[2024-03-02 22:35] VITALS: TEMP 98.6
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
[2024-03-03 00:58] VITALS: BP 138/88; PULSE 82; RESP 18
== END 2024-03-03 00:49 | disposition home or self-care (01) ==
LOC: EC 22:21
DX: S06.0X0A Concussion without loss of consciousness, initial encounter (principal); F17.290 Nicotine dependence, other tobacco product, uncomplicated; R40.2410 Glasgow coma scale score 13-15, unspecified time; V89.2XXA Person injured in unspecified motor-vehicle accident, traffic, initial encounter; Y92.410 Unspecified street and highway as the place of occurrence of the external cause
CPT/HCPCS: 70450; 99283